=== PATIENT | male | born 1985 | race Caucasian/White ===

== ENCOUNTER 2022-11-23 17:21 | Emergency (ER) | payer OTHER ==
[~2022-11-23] VITALS: Ht 185.4 cm; Wt 177.2 kg
[2022-11-23] MEDS ORDERED: IBUP-1022 PO (17:46)
[2022-11-23] MEDS ORDERED: ACET325C5 PO (17:46)
[2022-11-23] MEDS ORDERED: NORCO, ANEXSIA 5/325MG TABLET (HYDROcodone/ACETAMINOPHEN) PO ONE (19:40)
[2022-11-23] MEDS ORDERED: AUGMENTIN 875 MG TAB PO ONE (19:40)
[2022-11-23] MEDS ORDERED: AMOX875T2 PO (21:20)
[2022-11-23 21:27] VITALS: BP 165/80
== END 2022-11-23 21:29 | disposition home or self-care (01) ==
LOC: M ED 17:21
DX: K02.9 Dental caries, unspecified (principal)